=== PATIENT | male | born 1955 | race Caucasian/White ===

== ENCOUNTER → 2021-01-28 09:14 | Outpatient (CLI) | payer OTHER, SELFPAY ==
[2021-01-28 19:13] LABS: Alanine Aminotransferase 25 IU/L (<50); Albumin 4.3 g/dL (3.5-5.0); Albumin Globulin Ratio 1.5 (1.0-2.8); Alkaline Phosphatase 71 U/L (38-126); Aspartate Aminotransferase 25 IU/L (17-59); BUN Creatinine Ratio 18.6 (6-22); Bilirubin Total 1.1 mg/dL (0.2-1.3); Blood Urea Nitrogen 13 mg/dL (9-20); Carbon Dioxide 28 mmol/L (22-32); Chloride 103 mmol/L (98-107); Cholesterol 152 mg/dL (140-199); Estimated Glomerular Filt Rate > 60.0 mL/min (>60); Globulin 2.9 g/dL (1.7-4.1); Glucose 173 mg/dL (80-110); HDL Cholesterol 38 mg/dL (40-60); HEMOLYSIS < 15 (0-50); LDL Cholesterol Calculated 82 mg/dL (<100); Sodium 139 mmol/L (137-145); Total Protein 7.2 g/dL (6.3-8.2); Triglycerides 159 mg/dL (35-150)
[2021-01-28 20:20] LABS: Add Manual Diff / Slide Review NO; Basophils Absolute Auto 200 /uL (0-100); Basophils Percent Auto 1.5 % (0-2); Eosinophils Absolute Auto 500 /uL (0-450); Eosinophils Percent Auto 4.7 % (2-4); Hematocrit 43.9 % (41-53); Hemoglobin 13.5 g/dL (13.5-17.5); Lymphocytes Absolute Auto 3100 /uL (1100-4500); Lymphocytes Percent Auto 30.5 % (25-40); Mean Corpuscular HGB Conc 30.8 % (30-36); Mean Corpuscular Hemoglobin 29.7 PG (26-34); Mean Corpuscular Volume 96.4 fL (80-100); Monocytes Absolute Auto 200 /uL (0-900); Monocytes Percent Auto 2.2 % (3-14); Neutrophils Absolute Auto 6100 /uL (1500-7000); Neutrophils Percent Auto 61.1 % (50-75); Platelet Count 168 X10^3/uL (150-400); Red Blood Cell Count 4.56 X10^6/uL (4.5-5.9); Red Cell Distribution Width 18.1 % (11.6-14.8)
[2021-01-28 22:14] LABS: Hemoglobin A1C% w Est Avg Glu 7.4 % (4.0-6.0)
== END ==
PROVIDERS: PCP Physician Assistant; Visit Provider Physician Assistant
DX: E11.65 Type 2 diabetes mellitus with hyperglycemia (principal); E78.5 Hyperlipidemia, unspecified; M77.8 Other enthesopathies, not elsewhere classified
CPT/HCPCS: 80053; 80061; 83036; 85025

== ENCOUNTER → 2021-11-25 08:56 | Outpatient (CLI) | payer OTHER, SELFPAY ==
[2021-11-25 19:38] LABS: Hemoglobin A1C% w Est Avg Glu 7.4 % (4.0-6.0)
[2021-11-25 19:42] LABS: Alanine Aminotransferase 22 IU/L (<50); Albumin 4.4 g/dL (3.5-5.0); Albumin Globulin Ratio 1.6 (1.0-2.8); Alkaline Phosphatase 55 U/L (38-126); Aspartate Aminotransferase 25 IU/L (17-59); BUN Creatinine Ratio 17.7 (6-22); Bilirubin Total 1.9 mg/dL (0.2-1.3); Blood Urea Nitrogen 14 mg/dL (9-20); Calcium 9.4 mg/dL (8.4-10.2); Carbon Dioxide 29 mmol/L (22-32); Chloride 101 mmol/L (98-107); Cholesterol 134 mg/dL (140-199); Estimated Glomerular Filt Rate > 60.0 mL/min (>60); Globulin 2.7 g/dL (1.7-4.1); Glucose 141 mg/dL (80-110); HDL Cholesterol 27 mg/dL (40-60); HEMOLYSIS < 15 (0-50); LDL Cholesterol Calculated 75 mg/dL (<100); Potassium 4.7 mmol/L (3.4-5.1); Sodium 137 mmol/L (137-145); Total Protein 7.1 g/dL (6.3-8.2); Triglycerides 161 mg/dL (35-150)
[2021-11-25 20:12] LABS: Prostate Specific Antigen Scrn 1.79 ng/mL (0.1-4.0); TSH w/ Reflex to FT4 2.88 uIU/mL (0.47-4.68)
[2021-11-25 21:05] LABS: Hematocrit 34.2 % (41-53); Hemoglobin 13.4 g/dL (13.5-17.5); Mean Corpuscular HGB Conc 39.2 % (30-36); Mean Corpuscular Hemoglobin 47.8 PG (26-34); Platelet Count 321 X10^3/uL (150-400); Red Blood Cell Count 2.81 X10^6/uL (4.5-5.9); Red Cell Distribution Width 34.8 % (11.6-14.8); White Blood Cell Count 9.2 X10^3/uL (4.5-11.0)
[2021-11-25 22:08] LABS: Add Manual Diff / Slide Review YES
[2021-11-25 22:12] LABS: Neutrophils Absolute Manual 5428 /uL (3000-5900); Total Cells Counted 100
[2021-11-25 22:35] LABS: RBC Morphology Normal Morphology
== END ==
PROVIDERS: PCP Physician Assistant; Visit Provider Physician Assistant
DX: E11.65 Type 2 diabetes mellitus with hyperglycemia (principal); Z86.010 Personal history of colon polyps; N40.0 Benign prostatic hyperplasia without lower urinary tract symptoms; E78.5 Hyperlipidemia, unspecified; Z12.5 Encounter for screening for malignant neoplasm of prostate
CPT/HCPCS: 80053; 80061; 83036; 84443; 85007; 85025; G0103

== ENCOUNTER → 2021-11-27 09:21 | Outpatient (CLI) | payer OTHER, SELFPAY ==
[2021-11-27 18:59] LABS: HEMOLYSIS < 15 (0-50); Iron 208 ug/dL (49-181)
[2021-11-27 19:10] LABS: Percent Iron Saturation 53 % (20-50); Total Iron Binding Capacity 389 ug/dL (261-462); Transferrin 324 mg/dL (206-381)
[2021-11-27 19:38] LABS: Ferritin 196 ng/mL (18-464)
[2021-11-27 20:54] LABS: Hematocrit 39.4 % (41-53); Hemoglobin 13.2 g/dL (13.5-17.5); Mean Corpuscular Hemoglobin 30.7 PG (26-34); Mean Corpuscular Volume 91.7 fL (80-100); Red Cell Distribution Width 13.7 % (11.6-14.8); White Blood Cell Count 9.9 X10^3/uL (4.5-11.0)
[2021-11-27 20:55] LABS: Mean Corpuscular HGB Conc 33.5 % (30-36)
[2021-11-27 20:56] LABS: Platelet Count 295 X10^3/uL (150-400)
[2021-11-27 21:02] LABS: Neutrophils Absolute Manual 5940 /uL (3000-5900); Total Cells Counted 100
[2021-11-27 21:06] LABS: Poikilocytosis 1+
== END ==
PROVIDERS: PCP Physician Assistant; Visit Provider Physician Assistant
DX: D64.9 Anemia, unspecified (principal)
CPT/HCPCS: 82728; 83540; 83550; 85025

== ENCOUNTER → 2021-12-01 10:17 | Outpatient (CLI) | payer OTHER, SELFPAY ==
[2021-12-03 10:51] LABS: Fecal Immunochemical Test Negative (Negative)
== END ==
PROVIDERS: PCP Physician Assistant; Visit Provider Physician Assistant
DX: D64.9 Anemia, unspecified (principal)
CPT/HCPCS: 82274

== ENCOUNTER → 2022-01-15 08:46 | Outpatient (CLI) | payer OTHER, SELFPAY ==
[2022-01-15 19:11] LABS: Bilirubin Total 1.4 mg/dL (0.2-1.3)
[2022-01-15 19:51] LABS: Add Manual Diff / Slide Review NO; Basophils Absolute Auto 100 /uL (0-100); Basophils Percent Auto 1.2 % (0-2); Eosinophils Absolute Auto 600 /uL (0-450); Eosinophils Percent Auto 6.2 % (2-4); Hematocrit 38.1 % (41-53); Hemoglobin 13.1 g/dL (13.5-17.5); Lymphocytes Absolute Auto 2400 /uL (1100-4500); Lymphocytes Percent Auto 26.2 % (25-40); Mean Corpuscular HGB Conc 34.4 % (30-36); Mean Corpuscular Hemoglobin 33.1 PG (26-34); Mean Corpuscular Volume 96.2 fL (80-100); Monocytes Absolute Auto 800 /uL (0-900); Monocytes Percent Auto 8.4 % (3-14); Neutrophils Absolute Auto 5400 /uL (1500-7000); Platelet Count 332 X10^3/uL (150-400); Red Blood Cell Count 3.96 X10^6/uL (4.5-5.9); Red Cell Distribution Width 13.7 % (11.6-14.8); White Blood Cell Count 9.3 X10^3/uL (4.5-11.0)
== END ==
PROVIDERS: PCP Physician Assistant; Visit Provider Physician Assistant
DX: D64.9 Anemia, unspecified (principal); R17 Unspecified jaundice
CPT/HCPCS: 82247; 85025

== ENCOUNTER → 2022-03-11 15:08 | Outpatient (CLI) | payer OTHER, SELFPAY ==
--- NOTE | 2022-03-11 15:10 | DI.ECHO.S_ITS ---
[place] [facility]---------+ [facility] +---------+ : : [address] : : : : [id number] : : : : Phone: [phone]+ Echocardiogram Report + + :Name: JASSON FLORES Study Date: 03/11/2022 Height: 70 in : :[facility] ReadingLocation: Weight: 200 lb : : Gender: Male BSA: 2.1 m2 : :: 1955 Age: 66 yrs BP: 152/101 mmHg: :Reason For Study: CHEST PAIN : :Ordering Physician: RUIZ, : :ELBA Performed By: Sruthi Tipton : :Referring: ELBA MELCHOR : + + Interpretation Summary The ejection fraction is estimated to be 55-60%. Diastolic parameters suggest probable normal left ventricular diastolic function and normal filling pressures. The right ventricle is normal in size and function. There is trace aortic regurgitation. Unable to estimate PASP. The ascending aorta is moderately enlarged, 4.2 cm. Procedure: A two-dimensional transthoracic echocardiogram with color flow and Doppler was performed. The study quality was technically adequate. There is no prior echocardiogram noted for this patient. The patient was in sinus rhythm with heart rates between 70-80 bpm during the exam. Left Ventricle: There is normal left ventricular wall thickness. The ejection fraction is estimated to be 55-60%. Diastolic parameters suggest probable normal left ventricular diastolic function and normal filling pressures. Right Ventricle: The right ventricle is normal in size and function. Atria: The left atrial size is normal. Right atrial size is normal. There is no Doppler evidence for an interatrial shunt. Mitral Valve: The mitral valve leaflets appear mildly thickened, but open well. There is mild mitral annular calcification. There is trace mitral regurgitation. Aortic Valve: The aortic valve is trileaflet. The aortic valve opens well. There is no aortic valve stenosis. There is trace aortic regurgitation. Tricuspid Valve: The tricuspid valve is normal in structure and function. There is a trace or physiologic amount of tricuspid regurgitation. Pulmonic Valve: The pulmonic valve leaflets are thin and pliable; valve motion is normal. There is mild pulmonic regurgitation. Great Vessels: The aortic root is normal size. The ascending aorta is moderately enlarged. The IVC is of normal diameter and collapses greater than 50% with a sniff. This suggests a low right atrial pressure of 3 mm Hg. Pericardium/ Pleura There is no pericardial effusion. There is no pleural effusion. MMode/2D Measurements & Calculations LVIDd: 4.9 cm LVOT diam: 2.2 cm LVIDs: 3.0 cm Ao root diam: 3.8 cm FS: 37.7 % asc Aorta Diam: 4.2 cm IVSd: 1.0 cm Ao Arch Diam (Prox Trans): 3.3 cm LVPWd: 1.00 cm LV wade. diameter/BSA (cm/m^2): 2.3 LV sys. diameter/BSA (cm/m^2): 1.4 LA A2 area: 20.0 cm2 RA long axis: 5.3 cm LA A4 area: 16.3 cm2 RA area: 18.6 cm2 LA length (vol): 5.2 cm RA vol: 55.4 ml LA vol: 52.9 ml RA : 26.5 ml/m2 LA vol index: 25.3 ml/m2 IVC diam: 1.1 cm RVD1 (basal): 4.4 cm RVD2 (mid): 3.8 cm TAPSE: 2.6 cm Doppler Measurements & Calculations Ao V2 max: 162.2 cm/sec LVOT Max Melanie: 100.7 cm/sec Ao V2 mean: 98.0 cm/sec LV V1 max P.1 mmHg Ao max P.5 mmHg LV V1 VTI: 21.7 cm Ao mean P.7 mmHg YURIY(I,D): 3.3 cm2 Ao V2 VTI: 26.1 cm YURIY(V,D): 2.4 cm2 sev ratio: 0.83 YURIY indexed to BSA (cm^2/m^2): 1.6 AI P1/2t: 804.7 msec AI dec slope: 121.2 cm/sec2 MV E max melanie: 69.4 cm/sec PA V2 max: 117.4 cm/sec MV A max melanie: 84.6 cm/sec PA V2 mean: 77.7 cm/sec MV E/A: 0.82 PA mean P.7 mmHg Med Peak E' Melanie: 6.6 cm/sec PA pr(Accel): 37.9 mmHg E/E' med: 10.6 Lat Peak E' Melanie: 9.9 cm/sec E/E' lat: 7.0 E/e' average: 8.8 MV dec time: 0.23 sec SVLVOT): 85.1 ml Reading Physician:05:11 PM
[2022-03-11 17:09] LABS: COVID19 -Nasal RAPID Negative (Negative)
--- NOTE | 2022-03-11 19:15 | DI.NM.S_ITS ---
DATE OF SERVICE: 03/11/2022 PROCEDURE: Exercise stress test. INDICATION: Chest pain, sinus bradycardia with underlying diabetes. CARDIAC STRESS: The patient underwent exercise stress test under the supervision of an attending staff. The patient walked on Mario protocol for 6 minutes and 51 seconds, achieved 92 percent of target heart rate. Baseline blood pressure 124/80 mmHg. Maximum blood pressure 172/92 mmHg. VICENTA positive 13 percent. Baseline rhythm was sinus. During stress, no convincing ischemic changes seen. Some intermittent occasional PVCs without any ventricular tachycardia. No chest discomfort. Had some shortness of breath. CONCLUSION: Exercise stress test is negative for inducible ischemia. Diminished exercise tolerance. VICENTA positive 13 percent. Achieved 92 percent of target heart rate. Mildly hypertensive blood pressure response. Diastolic blood pressure increased from 80 to 92 mmHg. Baseline rhythm sinus. No convincing ischemic changes seen. Occasional premature ventricular contractions, including isolated premature ventricular contractions and rare ventricular couplets. No ventricular tachycardia. No chest pain. Had some shortness of breath. Overall low-risk exercise stress test. Roberth Martin - DIANA/levi/bull doc#: [id number]/job#: [id number] dd: 03/11/2022 17:12:00 dt: 03/11/2022 17:55:00 DICTATING MD/COPIES TO: Eldon Raines MD COPIES MNE: SHYLA;
== END ==
PROVIDERS: PCP Physician Assistant; Referring Provider Internal Medicine Cardiovascular Disease; Visit Provider Internal Medicine Cardiovascular Disease
DX: R07.9 Chest pain, unspecified (principal); Z20.822 Contact with and (suspected) exposure to COVID-19; I10 Essential (primary) hypertension; I35.1 Nonrheumatic aortic (valve) insufficiency; I51.7 Cardiomegaly
CPT/HCPCS: 87635; 93017; 93306

== ENCOUNTER → 2022-03-18 10:32 | Outpatient (CLI) | payer OTHER, SELFPAY ==
[2022-03-18 19:25] LABS: Alanine Aminotransferase 23 IU/L (<50); Albumin 4.3 g/dL (3.5-5.0); Albumin Globulin Ratio 1.5 (1.0-2.8); Alkaline Phosphatase 63 U/L (38-126); Aspartate Aminotransferase 41 IU/L (17-59); BUN Creatinine Ratio 30.1 (6-22); Bilirubin Total 0.9 mg/dL (0.2-1.3); Blood Urea Nitrogen 22 mg/dL (9-20); Calcium 8.9 mg/dL (8.4-10.2); Carbon Dioxide 24 mmol/L (22-32); Chloride 105 mmol/L (98-107); Estimated Glomerular Filt Rate > 60 mL/min (>60); Globulin 2.8 g/dL (1.7-4.1); Glucose 272 mg/dL (80-110); HEMOLYSIS < 15 (0-50); Potassium 4.5 mmol/L (3.4-5.1); Sodium 138 mmol/L (137-145); Total Protein 7.1 g/dL (6.3-8.2)
[2022-03-18 19:29] LABS: Hemoglobin A1C% w Est Avg Glu 7.2 % (4.0-6.0)
[2022-03-18 21:00] LABS: Add Manual Diff / Slide Review NO; Basophils Absolute Auto 100 /uL (0-100); Basophils Percent Auto 1.2 % (0-2); Eosinophils Absolute Auto 0 /uL (0-450); Eosinophils Percent Auto 0.4 % (2-4); Hematocrit 37.2 % (41-53); Hemoglobin 13.1 g/dL (13.5-17.5); Lymphocytes Absolute Auto 1600 /uL (1100-4500); Lymphocytes Percent Auto 14.9 % (25-40); Mean Corpuscular HGB Conc 35.2 % (30-36); Mean Corpuscular Hemoglobin 34.7 PG (26-34); Mean Corpuscular Volume 98.4 fL (80-100); Monocytes Absolute Auto 200 /uL (0-900); Monocytes Percent Auto 2.2 % (3-14); Neutrophils Absolute Auto 8600 /uL (1500-7000); Neutrophils Percent Auto 81.3 % (50-75); Platelet Count 345 X10^3/uL (150-400); Red Blood Cell Count 3.78 X10^6/uL (4.5-5.9); Red Cell Distribution Width 13.9 % (11.6-14.8); White Blood Cell Count 10.5 X10^3/uL (4.5-11.0)
== END ==
PROVIDERS: PCP Physician Assistant; Visit Provider Physician Assistant
DX: D64.9 Anemia, unspecified (principal); E11.65 Type 2 diabetes mellitus with hyperglycemia; R17 Unspecified jaundice; Z79.899 Other long term (current) drug therapy
CPT/HCPCS: 80053; 83036; 85025

== ENCOUNTER → 2022-05-12 14:02 | Outpatient (CLI) | payer OTHER, SELFPAY ==
[2022-05-12 19:43] LABS: HEMOLYSIS < 15 (0-50); Iron 127 ug/dL (49-181)
[2022-05-12 19:52] LABS: Alanine Aminotransferase 22 IU/L (<50); Albumin Globulin Ratio 1.4 (1.0-2.8); Alkaline Phosphatase 58 U/L (38-126); Aspartate Aminotransferase 56 IU/L (17-59); Bilirubin Total 0.7 mg/dL (0.2-1.3); Blood Urea Nitrogen 20 mg/dL (9-20); Calcium 8.9 mg/dL (8.4-10.2); Carbon Dioxide 28 mmol/L (22-32); Chloride 105 mmol/L (98-107); Estimated Glomerular Filt Rate > 60 mL/min (>60); Globulin 2.8 g/dL (1.7-4.1); Glucose 144 mg/dL (80-110); HEMOLYSIS < 15 (0-50); Potassium 4.4 mmol/L (3.4-5.1); Sodium 139 mmol/L (137-145); Total Protein 6.8 g/dL (6.3-8.2)
[2022-05-12 20:00] LABS: Percent Iron Saturation 35 % (20-50); Total Iron Binding Capacity 358 ug/dL (261-462); Transferrin 260 mg/dL (206-381)
[2022-05-12 20:22] LABS: Ferritin 128 ng/mL (18-464)
[2022-05-12 20:54] LABS: Folate 15.6 ng/mL (2.76-20.0); Vitamin B12 778 pg/mL (239-931)
[2022-05-12 21:26] LABS: Hematocrit 38.9 % (41-53); Hemoglobin 13.3 g/dL (13.5-17.5); Mean Corpuscular HGB Conc 34.3 % (30-36); Mean Corpuscular Hemoglobin 31.4 PG (26-34); Mean Corpuscular Volume 91.4 fL (80-100); Platelet Count 358 X10^3/uL (150-400); Red Blood Cell Count 4.25 X10^6/uL (4.5-5.9); Red Cell Distribution Width 13.5 % (11.6-14.8); White Blood Cell Count 9.8 X10^3/uL (4.5-11.0)
[2022-05-12 21:59] LABS: Add Manual Diff / Slide Review YES
[2022-05-12 22:03] LABS: Neutrophils Absolute Manual 6272 /uL (3000-5900); Total Cells Counted 100
[2022-05-12 22:04] LABS: RBC Morphology Normal Morphology
[2022-05-12 22:13] LABS: Erythrocyte Sedimentation Rate 1 MM/HR (0-15)
[2022-05-14 14:43] LABS: Alpha-1-Globulin 0.2 g/dL (0.0-0.4); Alpha-2-Globulin 0.6 g/dL (0.4-1.0); Gamma Globulin 0.8 g/dL (0.4-1.8); Globulin Total 2.5 g/dL (2.2-3.9); Protein, Total 6.5 g/dL (6.0-8.5)
== END ==
PROVIDERS: PCP Physician Assistant; Visit Provider Internal Medicine Medical Oncology
DX: C91.10 Chronic lymphocytic leukemia of B-cell type not having achieved remission (principal); D64.9 Anemia, unspecified
CPT/HCPCS: 80053; 82607; 82728; 82746; 83540; 83550; 84155; 84165; 85007; 85025; 85651

== ENCOUNTER → 2023-06-16 09:28 | Outpatient (CLI) | payer OTHER, SELFPAY ==
[2023-06-16 20:40] LABS: Hemoglobin A1C% w Est Avg Glu 6.8 % (4.0-6.0)
[2023-06-16 20:48] LABS: Alanine Aminotransferase 22 IU/L (<50); Albumin 4.3 g/dL (3.5-5.0); Albumin Globulin Ratio 1.4 (1.0-2.8); Alkaline Phosphatase 74 U/L (38-126); Aspartate Aminotransferase 20 IU/L (17-59); BUN Creatinine Ratio 17.8 (6-22); Bilirubin Total 1.2 mg/dL (0.2-1.3); Blood Urea Nitrogen 13 mg/dL (9-20); Calcium 9.9 mg/dL (8.4-10.2); Carbon Dioxide 26 mmol/L (22-32); Chloride 99 mmol/L (98-107); Cholesterol 154 mg/dL (140-199); Estimated Glomerular Filt Rate > 60 mL/min (>60); Globulin 3.1 g/dL (1.7-4.1); Glucose 145 mg/dL (80-110); HDL Cholesterol 33 mg/dL (40-60); HEMOLYSIS < 15 (0-50); LDL Cholesterol Calculated 85 mg/dL (<100); Potassium 4.5 mmol/L (3.4-5.1); Sodium 136 mmol/L (137-145); Total Protein 7.4 g/dL (6.3-8.2); Triglycerides 178 mg/dL (35-150)
[2023-06-16 20:52] LABS: Add Manual Diff / Slide Review NO; Basophils Absolute Auto 200 /uL (0-100); Basophils Percent Auto 1.5 % (0-2); Eosinophils Absolute Auto 500 /uL (0-450); Eosinophils Percent Auto 4.9 % (2-4); Hematocrit 39.2 % (41-53); Hemoglobin 14.2 g/dL (13.5-17.5); Lymphocytes Absolute Auto 2400 /uL (1100-4500); Lymphocytes Percent Auto 21.7 % (25-40); Mean Corpuscular HGB Conc 36.1 % (30-36); Mean Corpuscular Hemoglobin 35.7 PG (26-34); Mean Corpuscular Volume 98.8 fL (80-100); Monocytes Absolute Auto 900 /uL (0-900); Monocytes Percent Auto 8.5 % (3-14); Neutrophils Absolute Auto 7000 /uL (1500-7000); Neutrophils Percent Auto 63.4 % (50-75); Platelet Count 386 X10^3/uL (150-400); Red Blood Cell Count 3.97 X10^6/uL (4.5-5.9); Red Cell Distribution Width 13.9 % (11.6-14.8)
[2023-06-16 21:09] LABS: Thyroid Stimulating Hormone 2.23 uIU/mL (0.47-4.68)
[2023-06-16 21:13] LABS: Creatinine Urine Random 95.6 mg/dL
[2023-06-16 21:21] LABS: Microalbumi Creatinin Ratio Ur 13.5 ug/mg CR (<30); Microalbumin Urine Random 1.3 mg/dL (0-1.6)
== END ==
PROVIDERS: PCP Physician Assistant; Visit Provider Physician Assistant
DX: D64.9 Anemia, unspecified (principal); E11.65 Type 2 diabetes mellitus with hyperglycemia; E78.5 Hyperlipidemia, unspecified; R17 Unspecified jaundice
CPT/HCPCS: 80053; 80061; 82043; 82570; 83036; 84443; 85025

== ENCOUNTER → 2023-12-22 09:50 | Outpatient (CLI) | payer OTHER, SELFPAY ==
[2023-12-22 19:48] LABS: Hemoglobin A1C% w Est Avg Glu 8.6 % (4.0-6.0)
[2023-12-22 19:49] LABS: Alanine Aminotransferase 21 IU/L (<50); Albumin 4.1 g/dL (3.5-5.0); Albumin Globulin Ratio 1.5 (1.0-2.8); Alkaline Phosphatase 63 U/L (38-126); Aspartate Aminotransferase 19 IU/L (17-59); BUN Creatinine Ratio 20.6 (6-22); Bilirubin Total 1.1 mg/dL (0.2-1.3); Blood Urea Nitrogen 14 mg/dL (9-20); Calcium 9.6 mg/dL (8.4-10.2); Carbon Dioxide 24 mmol/L (22-32); Chloride 104 mmol/L (98-107); Cholesterol 174 mg/dL (140-199); Estimated Glomerular Filt Rate > 60 mL/min (>60); Globulin 2.7 g/dL (1.7-4.1); Glucose 176 mg/dL (80-110); HDL Cholesterol 50 mg/dL (40-60); HEMOLYSIS < 15 (0-50); LDL Cholesterol Calculated 96 mg/dL (<100); Potassium 4.5 mmol/L (3.4-5.1); Sodium 135 mmol/L (137-145); Total Protein 6.8 g/dL (6.3-8.2); Triglycerides 140 mg/dL (35-150)
[2023-12-22 20:15] LABS: Prostate Specific Antigen Scrn 2.11 ng/mL (0.1-4.0)
[2023-12-22 20:33] LABS: Hematocrit 40.9 % (41-53); Hemoglobin 13.3 g/dL (13.5-17.5); Mean Corpuscular HGB Conc 32.6 % (30-36); Mean Corpuscular Hemoglobin 28.5 PG (26-34); Mean Corpuscular Volume 87.5 fL (80-100); Platelet Count 423 X10^3/uL (150-400); Red Blood Cell Count 4.68 X10^6/uL (4.5-5.9); Red Cell Distribution Width 14.3 % (11.6-14.8); White Blood Cell Count 12.2 X10^3/uL (4.5-11.0)
[2023-12-22 20:45] LABS: Add Manual Diff / Slide Review YES
[2023-12-22 20:49] LABS: Neutrophils Absolute Manual 5856 /uL (3000-5900); Total Cells Counted 100
[2023-12-22 20:51] LABS: RBC Morphology Normal Morphology; Rouleaux 1+; Smudge Cells 1+
[2023-12-23 18:15] LABS: Hep C Virus Ab w/Reflex Quant NEGATIVE s/c (NEGATIVE)
== END ==
PROVIDERS: PCP Physician Assistant; Visit Provider Physician Assistant
DX: Z11.59 Encounter for screening for other viral diseases (principal); E11.65 Type 2 diabetes mellitus with hyperglycemia; D64.9 Anemia, unspecified; R17 Unspecified jaundice; E78.5 Hyperlipidemia, unspecified; Z79.899 Other long term (current) drug therapy; Z12.5 Encounter for screening for malignant neoplasm of prostate
CPT/HCPCS: 80053; 80061; 83036; 85007; 85025; 86803; G0103

== ENCOUNTER → 2024-02-28 12:43 | Outpatient (CLI) | payer OTHER, SELFPAY ==
[2024-02-28 20:10] LABS: Hematocrit 37.4 % (41-53); Hemoglobin 13.6 g/dL (13.5-17.5); Mean Corpuscular HGB Conc 36.5 % (30-36); Mean Corpuscular Hemoglobin 38.4 PG (26-34); Mean Corpuscular Volume 105.2 fL (80-100); Platelet Count 416 X10^3/uL (150-400); Red Blood Cell Count 3.55 X10^6/uL (4.5-5.9)
[2024-02-28 20:26] LABS: Neutrophils Absolute Manual 6600 /uL (3000-5900); Total Cells Counted 100
[2024-02-28 20:27] LABS: Macrocytosis 1+
== END ==
PROVIDERS: PCP Physician Assistant; Visit Provider Family Medicine
DX: D64.9 Anemia, unspecified (principal); R79.9 Abnormal finding of blood chemistry, unspecified; R06.00 Dyspnea, unspecified
CPT/HCPCS: 85025

== ENCOUNTER → 2024-03-07 12:24 | Outpatient (CLI) | payer OTHER, SELFPAY ==
--- NOTE | 2024-03-07 13:00 | DI.CT.S_ITS ---
PROCEDURE: CT CHEST WO CON INDICATIONS: Abnormal CXR, RECURRENT COUGH TECHNIQUE: Noncontrast 5 mm thick sections acquired from the pulmonary apices to the posterior costophrenic angles. 1 mm lung window, 5 mm thick coronal and sagittal and 7 mm axial MIP reformats were then acquired. For radiation dose reduction, the following was used: automated exposure control, adjustment of mA and/or kV according to patient size. COMPARISON: [facility] ([place]), CR, XR CHEST 2V, 02/28/2024, 12:16. FINDINGS: Image quality: Diagnostic. Lower Neck: No enlarged lymph nodes. Thyroid: No thyroid nodules which require sonographic follow up, per consensus guidelines. Axillae: No enlarged lymph nodes. Chest Wall: Unremarkable. Bones: Age-appropriate bony degenerative changes are seen. Lungs and Pleura: In this patient with this given history, scrutiny is given to right infrahilar region. No significant pulmonary abnormality can be seen at this site. No masses or infiltrates can be seen elsewhere. No pneumothorax or pleural effusions are seen. Heart: Heart size is normal. No pericardial effusion. Prominent coronary artery calcification can be seen. Thoracic Vessels: The aorta and pulmonary arteries demonstrate normal size. Mediastinum and Maria T: No enlarged lymph nodes. Esophagus: No wall thickening. No hiatal hernia. Upper Abdomen: Visualized upper abdomen solid organs and bowel loops appear normal. IMPRESSION: No CT abnormality can be seen to correspond with the right infrahilar abnormality seen on the recent prior CT study. No pulmonary abnormality can be seen elsewhere. Additional findings: Prominent coronary artery calcification Dictated by: Michael Gonsalez M.D. on 03/07/2024 at 14:53 Approved by: Michael Gonsalez M.D. on 03/07/2024 at 14:55
== END ==
PROVIDERS: PCP Physician Assistant; Referring Provider Family Medicine; Visit Provider Family Medicine
DX: I25.10 Atherosclerotic heart disease of native coronary artery without angina pectoris (principal); R05.2 Subacute cough; R06.2 Wheezing; R06.09 Other forms of dyspnea; R93.89 Abnormal findings on diagnostic imaging of other specified body structures
CPT/HCPCS: 71250

== ENCOUNTER → 2024-03-21 12:55 | Outpatient (CLI) | payer OTHER, SELFPAY | PROVIDERS: PCP Physician Assistant; Referring Provider Family Medicine; Visit Provider Family Medicine | DX: R06.00 Dyspnea, unspecified (principal); R05.9 Cough, unspecified; R94.2 Abnormal results of pulmonary function studies | CPT/HCPCS: 94060; 94726; 94729 ==

== ENCOUNTER → 2024-03-29 13:05 | Outpatient (CLI) | payer OTHER, SELFPAY ==
[2024-03-29 21:01] LABS: Reticulocyte Count, Percent 1.1 % (0.9-2.6)
[2024-03-29 21:47] LABS: Add Manual Diff / Slide Review NO; Basophils Absolute Auto 100 /uL (0-100); Basophils Percent Auto 0.8 % (0-2); Eosinophils Absolute Auto 400 /uL (0-450); Eosinophils Percent Auto 3.3 % (2-4); Hematocrit 32.8 % (41-53); Hemoglobin 11.9 g/dL (13.5-17.5); Lymphocytes Absolute Auto 2000 /uL (1100-4500); Lymphocytes Percent Auto 18.6 % (25-40); Mean Corpuscular HGB Conc 36.4 % (30-36); Mean Corpuscular Hemoglobin 38.4 PG (26-34); Mean Corpuscular Volume 105.5 fL (80-100); Monocytes Absolute Auto 1200 /uL (0-900); Monocytes Percent Auto 10.8 % (3-14); Neutrophils Absolute Auto 7300 /uL (1500-7000); Neutrophils Percent Auto 66.5 % (50-75); Platelet Count 460 X10^3/uL (150-400); Red Blood Cell Count 3.11 X10^6/uL (4.5-5.9); Red Cell Distribution Width 13.9 % (11.6-14.8)
[2024-03-29 22:29] LABS: HEMOLYSIS < 15 (0-50); Iron 52 ug/dL (49-181)
[2024-03-29 22:35] LABS: BUN Creatinine Ratio 18.6 (6-22); Blood Urea Nitrogen 16 mg/dL (9-20); Carbon Dioxide 26 mmol/L (22-32); Chloride 107 mmol/L (98-107); Estimated Glomerular Filt Rate > 60 mL/min (>60); Glucose 193 mg/dL (80-110); HEMOLYSIS < 15 (0-50); Potassium 4.6 mmol/L (3.4-5.1); Sodium 140 mmol/L (137-145)
[2024-03-29 22:40] LABS: Percent Iron Saturation 16 % (20-50); Total Iron Binding Capacity 331 ug/dL (261-462); Transferrin 267 mg/dL (206-381)
[2024-03-29 22:53] LABS: Hemoglobin A1C% w Est Avg Glu 7.2 % (4.0-6.0)
[2024-03-29 23:05] LABS: TSH w/ Reflex to FT4 1.68 uIU/mL (0.47-4.68)
[2024-03-29 23:08] LABS: Ferritin 211 ng/mL (18-464)
[2024-03-29 23:40] LABS: Folate 4.6 ng/mL (2.76-20.0); Vitamin B12 Reflex MMA if <400 577 pg/mL (239-931)
[2024-03-31 15:09] LABS: Free Kappa Lt Chains, Serum 17.9 mg/L (3.3-19.4); Free Lambda Lt Chains,Serum 16.2 mg/L (5.7-26.3)
[2024-04-03 14:08] LABS: Albumin 3.5 g/dL (2.9-4.4); Alpha-1-Globulin 0.3 g/dL (0.0-0.4); Alpha-2-Globulin 0.8 g/dL (0.4-1.0); Gamma Globulin 0.7 g/dL (0.4-1.8); Globulin Total 2.7 g/dL (2.2-3.9); Protein, Total 6.2 g/dL (6.0-8.5)
== END ==
PROVIDERS: PCP Physician Assistant; Visit Provider Family Medicine
DX: Z01.812 Encounter for preprocedural laboratory examination (principal); D53.9 Nutritional anemia, unspecified; E11.65 Type 2 diabetes mellitus with hyperglycemia; R79.9 Abnormal finding of blood chemistry, unspecified
CPT/HCPCS: 80048; 82607; 82728; 82746; 83036; 83540; 83550; 83883; 84155; 84165; 84443; 85025; 85045

== ENCOUNTER → 2024-04-11 10:43 | Outpatient (CLI) | payer OTHER, SELFPAY ==
[2024-04-11 20:29] LABS: Lactate Dehydrogenase 226 U/L (120-246)
[2024-04-11 20:38] LABS: Hematocrit 35.8 % (41-53); Hemoglobin 12.5 g/dL (13.5-17.5); Mean Corpuscular Hemoglobin 34.7 PG (26-34); Mean Corpuscular Volume 99.2 fL (80-100); Platelet Count 474 X10^3/uL (150-400); Red Blood Cell Count 3.61 X10^6/uL (4.5-5.9); White Blood Cell Count 11.4 X10^3/uL (4.5-11.0)
[2024-04-11 20:50] LABS: Neutrophils Absolute Manual 7296 /uL (3000-5900); RBC Morphology Normal Morphology; Total Cells Counted 100
[2024-04-13 03:13] LABS: Haptoglobin 197 mg/dL (32-363)
== END ==
PROVIDERS: PCP Physician Assistant; Visit Provider Family Medicine
DX: D53.9 Nutritional anemia, unspecified (principal)
CPT/HCPCS: 83010; 83615; 85025

== ENCOUNTER → 2024-07-04 12:35 | Outpatient (CLI) | payer OTHER, SELFPAY ==
--- NOTE | 2024-07-04 | DI.US.S_ITS ---
PROCEDURE: US ABD AORTA ANEURYSM SCREEN INDICATIONS: SCREENING TECHNIQUE: Real time scanning was performed of the aorta and iliac arteries, with image documentation. COMPARISON: [facility], MR, MR PELVIS WO/W CON, 07/04/2024, 13:21. FINDINGS: Aorta: Proximal aortic diameter measures 2.5 cm. Mid-aorta measures 2.0 cm. Distal aortic diameter is 1.8 cm. Iliac arteries: Right common iliac artery measures 1.2 cm. Left common iliac artery measures 1.3 cm. Trace amount of atherosclerotic plaques are noted in bilateral iliac arteries. Incidentally noted is 10.8 x 7.1 x 5.7 cm heterogeneously hypoechoic and solid appearing mass involving left lower quadrant adjacent to the left iliac vessels. Internal vascularity is seen. There is also possible fluid collection with posterior through enhancement measures 3.8 x 2.4 x 1.9 cm in size in left lower quadrant adjacent to the iliac arteries. IMPRESSION: 1. No evidence of abdominal aortic aneurysm. 2. Patient's known large solid mass in left lateral pelvic region is better evaluated on previous MRI study. There is also suggestion of possible fluid collection adjacent to the left iliac vessel with through acoustic enhancement and no internal vascularity not definitely seen on previous MR study and is of indeterminate nature. Dictated by: Balaji Peng M.D. on 07/04/2024 at 17:27 Approved by: Balaji Peng M.D. on 07/04/2024 at 17:30
--- NOTE | 2024-07-04 12:36 | DI.MRI.S_ITS ---
PROCEDURE: MR LUMBAR SPINE WO CON INDICATIONS: lumbar px and radic not improving with PT/conservative tx TECHNIQUE: Noncontrast sagittal T1 spin echo and T2 fast echo, sagittal STIR, and T2 fast spin echo through the lumbar spine. In cases with scoliosis, additional coronal T2 fast spin echo may be performed. COMPARISON: [facility], MR, MR PELVIS WO/W CON, 07/04/2024, 13:21. FINDINGS: Image quality: Excellent. Alignment and Curvature: Trace anterolisthesis of L4 on L5. Bone Marrow: There is an infiltrative marrow process involving the medial left iliac bone and left iliac wing and to a lesser extent the lateral aspect of the left elvis sacrum. This is better seen on the MRI of the pelvis. The iliac bone is surrounded by an filtrate of neoplastic process involving the left iliopsoas muscle and left gluteal muscles and left posterior paraspinous muscles, with an overall contour it measurement of 14.1 x 11.9 cm on image 19 of series 6 of the pelvic MRI study. It is well seen on the T2 axial image 31 series 5 the lumbar spine study. No acute vertebral body compression fractures. Spinal Cord: Conus medullaris terminates at the L1 level. Visualized cord demonstrates normal signal and size. Paraspinous Soft Tissues: The iliac bone is surrounded by an filtrate of neoplastic process involving the left iliopsoas muscle and left gluteal muscles and left posterior paraspinous muscles, with an overall contour it measurement of 14.1 x 11.9 cm on image 19 of series 6 of the pelvic MRI study. It is well seen on the T2 axial image 31 series 5 the lumbar spine study. T12-L1: Facet hypertrophy. No canal stenosis or foraminal stenosis. L1-L2: Disc bulge. Facet hypertrophy. No canal stenosis or foraminal stenosis. L2-L3: Chronic disc height loss. Diffuse disc bulge. Facet and ligament hypertrophy. No canal stenosis or foraminal stenosis. L3-L4: Disc bulge. Facet hypertrophy. No canal stenosis or foraminal stenosis. L4-L5: Anterolisthesis of L4 on L5. Facet hypertrophy. No canal stenosis. There may be tumor infiltration involving the lateral aspect of the left foramen. Reference sagittal image 13 of series 4. L5-S1: Severe disc height loss. Facet hypertrophy. No canal stenosis or foraminal stenosis. IMPRESSION: 1. 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 The soft tissue mass measures approximately 14.1 x 11.9 cm. 2. There may be infiltrative tumor narrowing the lateral aspect of the left L4-L5 foramen, potentially representing in compression on the left L4 nerve root. Comment: Recommend CT abdomen and pelvis with contrast. This mass would be easily amenable to CT-guided biopsy for tissue diagnosis. Comment: An Urgent Findings note was created in PACS to ensure notification of the referring clinician. Dictated by: Ayden Christian M.D. on 07/04/2024 at 13:55 Approved by: Ayden Christian M.D. on 07/04/2024 at 14:12
--- NOTE | 2024-07-04 12:36 | DI.MRI.S_ITS ---
PROCEDURE: MR PELIS WO/W CON INDICATIONS: mass of left buttock, inguinal LA left TECHNIQUE: Noncontrast coronal T1 spin echo and STIR, sagittal T1 spin echo with fat saturation and STIR, axial T1 spin echo and T2 fast spin echo with fat saturation. After the administration of contrast, axial/sagittal/coronal T1 spin echo with fat saturation through the pelvis. COMPARISON: [facility]), CR, XR LUMBAR SPINE 2-3V, 04/18/2024, 8:34. [facility]), CR, XR HIP W PEL IF DONE LT 2V, 05/29/2024, 8:42. [facility], CT, CT CHEST WO CON, 03/07/2024, 12:40. FINDINGS: Image quality: Excellent. Bones: There is extensive marrow edema involving left iliac bone extending to involve left acetabulum as well as posterior and lateral aspect of left sacrum adjacent to the sacroiliac joint. Questionable involvement of spinous processes of left L3 through L5 vertebral body is also noted. There is no gross pathologic fracture. Cortical erosion involving anterior cortex of left iliac bone and left lateral sacrum adjacent to sacroiliac joint is likely present. No marrow signal abnormality is seen in right hemipelvis. Susceptibility artifacts are noted in left proximal femur from prior internal fixation. No definite marrow signal abnormality in visualized portion of left femoral shaft is noted. After IV contrast infusion, there is contrast enhancement within the above-mentioned area of marrow edema. Soft tissues: There is extensive signal abnormality involving left paraspinous muscles at the level of L3 vertebral body extending to lower sacrum. Extensive signal abnormality involving left gluteus medius and minimus muscles as well as deep portion of left gluteus sunita muscle is seen. Similar signal is also noted involving left iliacus and psoas muscles. Similar signal abnormality is also seen involving left obturator externus muscle and left abductor franc muscle. There is asymmetrically enlarged left elvis pelvic muscles compared to the right side. Significant mass effect on the adjacent right iliac and femoral vessels are noted. Prominent lymph nodes are noted along left iliac chain and seen in left inguinal region. No pelvic free fluid. Bladder wall thickness is normal. Enlarged prostate gland is noted with mass effect on floor of urinary bladder. After IV contrast infusion, heterogeneous enhancement throughout above-mentioned area of muscle signal abnormality is seen. IMPRESSION: 1. Finding is suggestive of extensive infiltrative process involving left elvis pelvic muscles as well as left iliac bone, lateral portion of left sacrum as well as left transverse process of L3 through L5 vertebral bodies. No definite pathologic fracture is seen. No other area of abnormal contrast enhancement. 2. Extensive infiltrative process also seen involving left elvis pelvic muscles as described in detail above with asymmetrically enlarged affected left elvis pelvic muscles and significant mass effect on the adjacent left pelvic vasculatures. Finding is highly concerning for infiltrative malignant process such as multiple myeloma. Other primary or metastatic disease cannot be excluded. Consider biopsy of the affected muscles for more definitive diagnosis. Dictated by: Balaji Peng M.D. on 07/04/2024 at 13:58 Approved by: Balaji Peng M.D. on 07/04/2024 at 14:52
== END ==
LOC: MRI 12:35
PROVIDERS: PCP Family Medicine; Referring Provider Family Medicine; Visit Provider Family Medicine
DX: M47.817 Spondylosis without myelopathy or radiculopathy, lumbosacral region (principal); M62.9 Disorder of muscle, unspecified; M89.9 Disorder of bone, unspecified; M47.816 Spondylosis without myelopathy or radiculopathy, lumbar region; M43.16 Spondylolisthesis, lumbar region; Z13.6 Encounter for screening for cardiovascular disorders; R22.2 Localized swelling, mass and lump, trunk; R19.09 Other intra-abdominal and pelvic swelling, mass and lump; M54.50 Low back pain, unspecified; M79.605 Pain in left leg
CPT/HCPCS: 72148; 72197; 76706; A9579

== ENCOUNTER → 2024-07-26 09:33 | Outpatient (CLI) | payer OTHER, SELFPAY ==
[2024-07-26 20:49] LABS: Alanine Aminotransferase 15 IU/L (<50); Albumin 3.1 g/dL (3.5-5.0); Albumin Globulin Ratio 1.3 (1.0-2.8); Alkaline Phosphatase 67 U/L (38-126); Aspartate Aminotransferase 25 IU/L (17-59); BUN Creatinine Ratio 21.2 (6-22); Blood Urea Nitrogen 33 mg/dL (9-20); Carbon Dioxide 33 mmol/L (22-32); Chloride 92 mmol/L (98-107); Estimated Glomerular Filt Rate 49 mL/min (>60); Globulin 2.4 g/dL (1.7-4.1); Glucose 82 mg/dL (80-110); HEMOLYSIS < 15 (0-50); Potassium 4.3 mmol/L (3.4-5.1); Sodium 132 mmol/L (137-145); Total Protein 5.5 g/dL (6.3-8.2)
[2024-07-26 20:50] LABS: Hematocrit 32.1 % (41-53); Hemoglobin 10.9 g/dL (13.5-17.5); Mean Corpuscular HGB Conc 34.1 % (30-36); Mean Corpuscular Hemoglobin 32.4 PG (26-34); Mean Corpuscular Volume 95.1 fL (80-100); Platelet Count 673 X10^3/uL (150-400); Red Blood Cell Count 3.38 X10^6/uL (4.5-5.9); Red Cell Distribution Width 16.4 % (11.6-14.8); White Blood Cell Count 18.4 X10^3/uL (4.5-11.0)
[2024-07-26 20:51] LABS: Add Manual Diff / Slide Review YES
[2024-07-26 21:03] LABS: Neutrophils Absolute Manual 13248 /uL (3000-5900); Total Cells Counted 100
[2024-07-26 21:05] LABS: Anisocytosis 1+; Ovalocytes 1+; Smudge Cells 2+; Toxic Vacuolation Present
[2024-07-26 21:06] LABS: Rouleaux 1+; Toxic Granulation Present
[2024-07-26 21:21] LABS: Calcium 15.9 mg/dL (8.4-10.2)
== END ==
PROVIDERS: PCP Family Medicine; Visit Provider Family Medicine
DX: E83.52 Hypercalcemia (principal); D64.9 Anemia, unspecified; C79.9 Secondary malignant neoplasm of unspecified site; R63.0 Anorexia; D75.839 Thrombocytosis, unspecified; D72.821 Monocytosis (symptomatic); E11.9 Type 2 diabetes mellitus without complications
CPT/HCPCS: 80053; 85007; 85025

== ENCOUNTER 2024-07-27 14:10 | Emergency (ER) | payer OTHER, SELFPAY ==
[2024-07-27] VITALS (20 sets, daily range): BP systolic 88–133; BP diastolic 59–80; PULSE 74–101; RESP 0–22; TEMP 36.4; O2SAT 88–98; BMI 25.4
--- NOTE | 2024-07-27 14:51 | EKG_ITS ---
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
[2024-07-27 15:03] LABS: Prothrombin Time 11.8 SECONDS (9.4-12.5)
[2024-07-27 15:06] LABS: PTT Partial Thromboplastin Tim 31 SECONDS (25.1-36.5)
[2024-07-27 15:08] LABS: Alanine Aminotransferase 16 IU/L (<50); Albumin 3.6 g/dL (3.5-5.0); Albumin Globulin Ratio 1.4 (1.0-2.8); Alkaline Phosphatase 65 U/L (38-126); Aspartate Aminotransferase 32 IU/L (17-59); BUN Creatinine Ratio 20.5 (6-22); Bilirubin Total 1.2 mg/dL (0.2-1.3); Blood Urea Nitrogen 35 mg/dL (9-20); Carbon Dioxide 36 mmol/L (22-32); Chloride 93 mmol/L (98-107); Creatine Kinase 24 U/L (55-170); Estimated Glomerular Filt Rate 44 mL/min (>60); Globulin 2.6 g/dL (1.7-4.1); Glucose 72 mg/dL (80-110); HEMOLYSIS < 15 (0-50); Lipase 79 U/L (23-300); Magnesium 1.8 mg/dL (1.6-2.3); Potassium 3.6 mmol/L (3.4-5.1); Sodium 134 mmol/L (137-145); Total Protein 6.2 g/dL (6.3-8.2)
[2024-07-27 15:15] LABS: Add Manual Diff / Slide Review NO; Basophils Absolute Auto 100 /uL (0-100); Basophils Percent Auto 0.5 % (0-2); Eosinophils Absolute Auto 1000 /uL (0-450); Hematocrit 35.7 % (41-53); Hemoglobin 11.3 g/dL (13.5-17.5); Lymphocytes Absolute Auto 4100 /uL (1100-4500); Lymphocytes Percent Auto 21.3 % (25-40); Mean Corpuscular HGB Conc 31.7 % (30-36); Mean Corpuscular Hemoglobin 27.4 PG (26-34); Mean Corpuscular Volume 86.3 fL (80-100); Monocytes Absolute Auto 2600 /uL (0-900); Monocytes Percent Auto 13.8 % (3-14); Neutrophils Absolute Auto 11300 /uL (1500-7000); Neutrophils Percent Auto 59.4 % (50-75); Platelet Count 733 X10^3/uL (150-400); Red Blood Cell Count 4.13 X10^6/uL (4.5-5.9); Red Cell Distribution Width 16.1 % (11.6-14.8)
[2024-07-27] MEDS: SODIUM CHLORIDE 0.9% 1,000 ML 1000 ML IV (15:17)
[2024-07-27 15:20] LABS: Troponin I < 0.012 ng/mL (0.01-0.034)
[2024-07-27 15:38] LABS: NT-proBNP (BNP-Adult 18+) 734 pg/mL (<125)
--- NOTE | 2024-07-27 15:45 | ED.RECABL ---
HPI - Recheck/Abnormal Lab/Rx <Jenna Johnathan, DO - Last Filed: 07/30/24 07:15> General Chief Complaint: Recheck/Abnormal Lab/Rx Stated Complaint: Sent by MD; Hypercalcemia Time Seen by Provider: 07/27/24 15:19 History of Present Illness HPI narrative: Patient is a 68-year-old male history of diabetes polymyalgia rheumatica large left buttock mass and inguinal mass presenting today with hypercalcemia. He was treated by Oncology this week for hypercalcemia as an outpatient. Records from PCP have been reviewed it is presumed he was given a bisphosphonate. He had outpatient blood work done yesterday which showed a calcium of 15.9 and he was sent to the ED today. Apparently biopsy results are pending due to additional testing and 2nd opinion from pathologist at [facility]. Patient reports significant weight loss about 20-30 lb over last couple of months Related Data Home Medications Medication Instructions Recorded Confirmed cholecalciferol (vitamin D3) 50 50 mcg PO DAILY 04/28/22 07/26/24 mcg (2,000 unit) capsule (Vitamin D3) mupirocin 2 % topical ointment 1 applic topical BID PRN 06/14/24 07/26/24 metformin 500 mg tablet 500 mg PO DAILY 07/26/24 07/26/24 Previous Rx's Medication Instructions Recorded budesonide 90 mcg/actuation breath 1 inh inhalation BID #1 ea 08/16/23 activated powder inhaler (Pulmicort Flexhaler) lisinopril 10 mg tablet See Rx Instructions .Route 12/14/23 .COMPLEX #90 tabs albuterol sulfate 90 mcg/actuation 2 puff PO Q4-6H #8.5 grams 02/28/24 aerosol inhaler atorvastatin 20 mg tablet 20 mg PO BEDTIME for cholesterol. 03/10/24 prevents heart attack and stroke #90 tabs prednisone 20 mg tablet 40 mg (2 x 20 mg) PO DAILY #15 tabs 06/14/24 gabapentin 300 mg capsule 600 mg (2 x 300 mg) PO TID #180 06/19/24 caps docusate sodium 250 mg capsule 250 mg PO BID #60 caps 07/05/24 oxycodone 5 mg tablet 5 mg PO TID PRN pain #60 tabs 07/21/24 Allergies Allergy/AdvReac Type Severity Reaction Status Date / Time No Known Drug Allergies Allergy Verified 07/26/24 08:59 Patient History <Jenna Mann DO - Last Filed: 07/30/24 07:15> Medical History (Updated 07/27/24 @ 19:45 by Jenna Mann DO) BPH (benign prostatic hyperplasia) Hx of adenomatous colonic polyps Hyperlipidemia Polymyalgia rheumatica Social History Smoking Status: Never smoker Smoking Status: Never smoker Substance Use Type: does not use Exam <DO Shea Rodriguez Last Filed: 07/30/24 07:15> Initial Vital Signs Initial Vital Signs: Vital Signs Temperature 97.6 F 07/27/24 14:23 Pulse Rate 74 07/27/24 14:23 Respiratory Rate 19 07/27/24 14:23 Blood Pressure 88/59 L 07/27/24 14:23 Pulse Oximetry 95 07/27/24 14:23 Oxygen Delivery Method Room Air 07/27/24 14:23 GENERAL: Alert 68-year-old male and in [no acute] distress. HEENT: Head atraumatic,EOMI, pupils reactive, face symmetric, [moist] mucous membranes CARDIOVASCULAR: Regular rate and rhythm without murmurs, rubs or gallops. RESPIRATORY: Breath sounds equal bilaterally, no wheezes rales or rhonchi. ABDOMEN: Soft, nontender. Normoactive bowel sounds all 4 quadrants. No guarding or rebound. EXTREMITIES: Normal range of motion, no clubbing or edema. Neurovascularly intact NEUROLOGICAL: Alert and oriented x4.Normal gait and speech. Cranial nerves II through XII grossly intact. SKIN: Warm, dry, no laceration, no petechiae, no rashes or lesions. <Darius Escamilla DO - Last Filed: 07/28/24 00:34> Initial Vital Signs Initial Vital Signs: Vital Signs Temperature 97.6 F 07/27/24 14:23 Pulse Rate 74 07/27/24 14:23 Respiratory Rate 19 07/27/24 14:23 Blood Pressure 88/59 L 07/27/24 14:23 Pulse Oximetry 95 07/27/24 14:23 Oxygen Delivery Method Room Air 07/27/24 14:23 Course <Jenna Mann DO - Last Filed: 07/30/24 07:15> Orders Ordered: Discontinued Medications Calcitonin [place] (Calcitonin,[place] 400 Units/2 Ml Mdv) 300 units SUBCUT NOW ONE Stop: 07/27/24 16:21 Last Admin: 07/27/24 16:32 Dose: 300 units Documented By: GILLES Furosemide (Furosemide 40 Mg/4 Ml Vial) 20 mg IV NOW ONE Stop: 07/27/24 15:20 Last Admin: 07/27/24 16:31 Dose: 20 mg Documented By: GILLES Sodium Chloride (Normal Saline 0.9%) 1,000 mls @ 1,000 mls/hr IV BOLUS ONE Stop: 07/27/24 16:13 Last Infusion: 07/28/24 02:04 Dose: Infused Documented By: Infusion: 07/27/24 16:22 Dose: Infused Documented By: Admin: 07/27/24 15:17 Dose: 1,000 mls/hr Documented By: DENISE Pamidronate Disodium 60 mg/ (Sodium Chloride) 1,020 mls @ 500 mls/hr IV NOW ONE Stop: 07/27/24 18:18 Last Admin: 07/27/24 16:49 Dose: Not Given Documented By: GILLES Sodium Chloride (Normal Saline 0.9%) 1,000 mls @ 100 mls/hr IV CONT KATRINA Last Admin: 07/27/24 17:04 Dose: 100 mls/hr Documented By: GILLES Zoledronic Acid 3 mg/ Sodium (Chloride) 103.75 mls @ 311.25 mls/hr IV NOW ONE Stop: 07/27/24 17:32 Last Admin: 07/27/24 19:13 Dose: Not Given Documented By: GILLES Ondansetron HCl (Ondansetron 4 Mg/2 Ml Inj) 4 mg IV NOW ONE Stop: 07/27/24 16:56 Last Admin: 07/27/24 17:03 Dose: 4 mg Documented By: GILLES Ondansetron HCl (Ondansetron 4 Mg/2 Ml Inj) 4 mg IV NOW ONE Stop: 07/28/24 02:02 Last Admin: 07/28/24 02:04 Dose: 4 mg Documented By: Vital Signs Vital signs: Vital Signs - 8 hr 07/27/24 17:10 07/27/24 17:10 07/27/24 17:32 Pulse Rate 92 H 92 H Respiratory Rate 17 Blood Pressure 132/75 Pulse Oximetry 95 88 L Oxygen Delivery Method Nasal Cannula Nasal Cannula Oxygen Flow Rate 2 2 07/27/24 18:00 07/27/24 18:00 07/27/24 18:15 Pulse Rate 94 H Respiratory Rate 14 Blood Pressure 114/73 133/80 Pulse Oximetry 98 Oxygen Delivery Method Oxygen Flow Rate 07/27/24 18:15 07/27/24 18:30 07/27/24 18:30 Pulse Rate 95 H 92 H Respiratory Rate 16 Blood Pressure 113/71 Pulse Oximetry 94 98 Oxygen Delivery Method Nasal Cannula Oxygen Flow Rate 2 07/27/24 19:00 07/27/24 19:00 07/27/24 19:30 Pulse Rate 96 H 101 H Respiratory Rate 19 17 Blood Pressure 110/73 Pulse Oximetry 98 98 98 Oxygen Delivery Method Nasal Cannula Oxygen Flow Rate 2 07/27/24 19:30 07/27/24 20:00 07/27/24 20:00 Pulse Rate 96 H Respiratory Rate 12 Blood Pressure 111/75 125/76 Pulse Oximetry 97 Oxygen Delivery Method Oxygen Flow Rate 07/27/24 20:30 07/27/24 20:30 07/27/24 21:00 Pulse Rate 95 H Respiratory Rate 13 Blood Pressure 123/74 114/72 Pulse Oximetry 95 Oxygen Delivery Method Nasal Cannula Oxygen Flow Rate 1 07/27/24 21:00 07/27/24 21:30 07/27/24 21:30 Pulse Rate 99 H 101 H Respiratory Rate 13 10 L Blood Pressure 123/71 Pulse Oximetry 96 97 Oxygen Delivery Method Oxygen Flow Rate 07/27/24 22:00 07/27/24 22:00 07/27/24 22:30 Pulse Rate 95 H 93 H Respiratory Rate 0 L 11 L Blood Pressure 119/71 Pulse Oximetry 97 96 Oxygen Delivery Method Oxygen Flow Rate 07/27/24 22:30 07/27/24 23:00 07/27/24 23:00 Pulse Rate 97 H Respiratory Rate 13 Blood Pressure 124/68 109/69 Pulse Oximetry 96 Oxygen Delivery Method Oxygen Flow Rate 07/27/24 23:30 07/27/24 23:30 07/28/24 00:00 Pulse Rate 97 H 92 H Respiratory Rate 13 Blood Pressure 98/66 Pulse Oximetry 96 97 Oxygen Delivery Method Oxygen Flow Rate 07/28/24 00:00 Pulse Rate Respiratory Rate Blood Pressure 108/65 Pulse Oximetry Oxygen Delivery Method Oxygen Flow Rate <Darius Escamilla DO - Last Filed: 07/28/24 00:34> Orders Ordered: Discontinued Medications Calcitonin [place] (Calcitonin,[place] 400 Units/2 Ml Mdv) 300 units SUBCUT NOW ONE Stop: 07/27/24 16:21 Last Admin: 07/27/24 16:32 Dose: 300 units Documented By: GILLES Furosemide (Furosemide 40 Mg/4 Ml Vial) 20 mg IV NOW ONE Stop: 07/27/24 15:20 Last Admin: 07/27/24 16:31 Dose: 20 mg Documented By: GILLES Sodium Chloride (Normal Saline 0.9%) 1,000 mls @ 1,000 mls/hr IV BOLUS ONE Stop: 07/27/24 16:13 Last Infusion: 07/28/24 02:04 Dose: Infused Documented By: Infusion: 07/27/24 16:22 Dose: Infused Documented By: Admin: 07/27/24 15:17 Dose: 1,000 mls/hr Documented By: DENISE Pamidronate Disodium 60 mg/ (Sodium Chloride) 1,020 mls @ 500 mls/hr IV NOW ONE Stop: 07/27/24 18:18 Last Admin: 07/27/24 16:49 Dose: Not Given Documented By: GILLES Sodium Chloride (Normal Saline 0.9%) 1,000 mls @ 100 mls/hr IV CONT KATRINA Last Admin: 07/27/24 17:04 Dose: 100 mls/hr Documented By: GILLES Zoledronic Acid 3 mg/ Sodium (Chloride) 103.75 mls @ 311.25 mls/hr IV NOW ONE Stop: 07/27/24 17:32 Last Admin: 07/27/24 19:13 Dose: Not Given Documented By: GILLES Ondansetron HCl (Ondansetron 4 Mg/2 Ml Inj) 4 mg IV NOW ONE Stop: 07/27/24 16:56 Last Admin: 07/27/24 17:03 Dose: 4 mg Documented By: GILLES Ondansetron HCl (Ondansetron 4 Mg/2 Ml Inj) 4 mg IV NOW ONE Stop: 07/28/24 02:02 Last Admin: 07/28/24 02:04 Dose: 4 mg Documented By: Vital Signs Vital signs: Vital Signs - 8 hr 07/27/24 17:10 07/27/24 17:10 07/27/24 17:32 Pulse Rate 92 H 92 H Respiratory Rate 17 Blood Pressure 132/75 Pulse Oximetry 95 88 L Oxygen Delivery Method Nasal Cannula Nasal Cannula Oxygen Flow Rate 2 2 07/27/24 18:00 07/27/24 18:00 07/27/24 18:15 Pulse Rate 94 H Respiratory Rate 14 Blood Pressure 114/73 133/80 Pulse Oximetry 98 Oxygen Delivery Method Oxygen Flow Rate 07/27/24 18:15 07/27/24 18:30 07/27/24 18:30 Pulse Rate 95 H 92 H Respiratory Rate 16 Blood Pressure 113/71 Pulse Oximetry 94 98 Oxygen Delivery Method Nasal Cannula Oxygen Flow Rate 2 07/27/24 19:00 07/27/24 19:00 07/27/24 19:30 Pulse Rate 96 H 101 H Respiratory Rate 19 17 Blood Pressure 110/73 Pulse Oximetry 98 98 98 Oxygen Delivery Method Nasal Cannula Oxygen Flow Rate 2 07/27/24 19:30 07/27/24 20:00 07/27/24 20:00 Pulse Rate 96 H Respiratory Rate 12 Blood Pressure 111/75 125/76 Pulse Oximetry 97 Oxygen Delivery Method Oxygen Flow Rate 07/27/24 20:30 07/27/24 20:30 07/27/24 21:00 Pulse Rate 95 H Respiratory Rate 13 Blood Pressure 123/74 114/72 Pulse Oximetry 95 Oxygen Delivery Method Nasal Cannula Oxygen Flow Rate 1 07/27/24 21:00 07/27/24 21:30 07/27/24 21:30 Pulse Rate 99 H 101 H Respiratory Rate 13 10 L Blood Pressure 123/71 Pulse Oximetry 96 97 Oxygen Delivery Method Oxygen Flow Rate 07/27/24 22:00 07/27/24 22:00 07/27/24 22:30 Pulse Rate 95 H 93 H Respiratory Rate 0 L 11 L Blood Pressure 119/71 Pulse Oximetry 97 96 Oxygen Delivery Method Oxygen Flow Rate 07/27/24 22:30 07/27/24 23:00 07/27/24 23:00 Pulse Rate 97 H Respiratory Rate 13 Blood Pressure 124/68 109/69 Pulse Oximetry 96 Oxygen Delivery Method Oxygen Flow Rate 07/27/24 23:30 07/27/24 23:30 07/28/24 00:00 Pulse Rate 97 H 92 H Respiratory Rate 13 Blood Pressure 98/66 Pulse Oximetry 96 97 Oxygen Delivery Method Oxygen Flow Rate 07/28/24 00:00 Pulse Rate Respiratory Rate Blood Pressure 108/65 Pulse Oximetry Oxygen Delivery Method Oxygen Flow Rate MDM - Recheck/Abnormal Lab/Rx <Jenna Botnick, DO - Last Filed: 07/30/24 07:15> Lab Data 07/27/24 14:40 07/27/24 14:40 Labs: Lab Results 07/27/24 07/27/24 Range/Units 14:40 19:30 WBC 19.0 H (4.5-11.0) X10^3/uL RBC 4.13 L (4.5-5.9) X10^6/uL Hgb 11.3 L (13.5-17.5) g/dL Hct 35.7 L (41-53) % MCV 86.3 D (80-100) fL MCH 27.4 (26-34) PG MCHC 31.7 (30-36) % RDW 16.1 H (11.6-14.8) % Plt Count 733 H (150-400) X10^3/uL Neut % (Auto) 59.4 (50-75) % Lymph % (Auto) 21.3 L (25-40) % [place] % (Auto) 13.8 (3-14) % Eos % (Auto) 5.0 H (2-4) % Baso % (Auto) 0.5 (0-2) % Neut # (Auto) 46199 H (4054-2760) /uL Lymph # (Auto) 4100 (9526-8720) /uL [place] # (Auto) 2600 H (0-900) /uL Eos # (Auto) 1000 H (0-450) /uL Baso # (Auto) 100 (0-100) /uL PT 11.8 (9.4-12.5) SECONDS INR 1.0 (0.9-1.3) APTT 31 (25.1-36.5) SECONDS Sodium 134 L (137-145) mmol/L Potassium 3.6 (3.4-5.1) mmol/L Chloride 93 L (98-107) mmol/L Carbon Dioxide 36 H (22-32) mmol/L BUN 35 H (9-20) mg/dL Creatinine 1.71 H (0.66-1.25) mg/dL Estimated GFR 44 L (>60) mL/min BUN/Creatinine Ratio 20.5 (6-22) Glucose 72 L (80-110) mg/dL Calcium 14.0 H* 13.0 H* (8.4-10.2) mg/dL Phosphorus 3.5 (2.3-3.7) mg/dL Magnesium 1.8 (1.6-2.3) mg/dL Total Bilirubin 1.2 (0.2-1.3) mg/dL AST 32 (17-59) IU/L ALT 16 (<50) IU/L Alkaline Phosphatase 65 (38-126) U/L Total Creatine Kinase 24 L (55-170) U/L Troponin I < 0.012 (0.01-0.034) ng/mL NT-Pro-B Natriuret Pep 734 H (<125) pg/mL Total Protein 6.2 L (6.3-8.2) g/dL Albumin 3.6 (3.5-5.0) g/dL Globulin 2.6 (1.7-4.1) g/dL Albumin/Globulin Ratio 1.4 (1.0-2.8) Lipase 79 (23-300) U/L TSH 4.03 (0.47-4.68) uIU/mL PTH Intact 8 L (15-65) pg/mL Imaging Data CT scan - abdomen/pelvis: Radiologist's Impression: PROCEDURE: CT CHEST ABD PEL W CON INDICATIONS: large left buttock mass TECHNIQUE: After the administration of intravenous contrast, 5 mm thick sections acquired from the lung apices to the symphysis. 5 mm coronal and sagittal reformats were performed, with additional 7 mm MIP reformats through the lungs. For radiation dose reduction, the following was used: automated exposure control, adjustment of mA and/or kV according to patient size. COMPARISON: [facility], CT, CT CHEST WO CON, 03/07/2024, 12:40. FINDINGS: Image quality: Diagnostic CHEST: Lower Neck: No enlarged lymph nodes. Thyroid: No thyroid nodules which require sonographic follow up, per consensus guidelines. Axillae: No enlarged lymph nodes. Chest Wall: Unremarkable. Lungs and Pleura: Small left pleural effusion. Associated compressive atelectasis. No focal consolidation. No septal thickening or nodularity. Heart: Heart size is normal. No pericardial effusion. Coronary atherosclerotic vascular calcifications are noted. Thoracic Vessels: The aorta and pulmonary arteries demonstrate normal size. Mediastinum and Maria T: No enlarged lymph nodes. Esophagus: No wall thickening. No hiatal hernia. ABDOMEN: Liver: No solid mass. Gallbladder: No radiopaque gallstones or wall thickening. Biliary ducts: No biliary dilation. Pancreas: No ductal dilation. Spleen: Size is within normal limits. Adrenal Glands: No adrenal nodules. Kidneys and Ureters: No hydronephrosis. No solid mass. No complex renal cystic lesion which requires follow up. Stomach and Bowel: Normal colonic caliber, without significant wall thickening. No evidence for small bowel obstruction or associated inflammatory changes. Normal appendix Peritoneum: No abnormal intraperitoneal fluid. No free air. Ventral Wall: No significant ventral hernia. Abdominal Nodes: No retroperitoneal or mesenteric adenopathy by size criteria. Vessels: Scattered atherosclerotic calcifications of the abdominal aorta and iliac vessels without aneurysmal dilatation. The inferior vena cava appears patent. PELVIS: Pelvic Organs: Unremarkable. Bladder: No bladder wall thickening, accounting for underdistention. Pelvic Nodes: There are enlarged left pelvic sidewall and left retroperitoneal lymph nodes extending along the abnormal appearing left psoas muscle and iliopsoas muscle. Miscellaneous: No inguinal hernias are seen. There is diffuse soft tissue edema of the left proximal hip, left buttocks and lower abdomen with associated skin thickening. There is anasarca of the left lower abdomen/pelvis. No organized fluid collection seen. Bones: There is abnormal enlargement and ill-defined margins of the left psoas muscle extending into the iliopsoas muscle. There is abnormal enlargement of the musculature of the left hip and buttocks with associated osseous destruction of the adjacent left iliac bone and left sacrum. No evidence to suggest pathologic fracture. Multiple abnormal left pelvic sidewall and left inguinal lymph nodes are seen. Suggestion of mild central necrosis within the lower pelvis. Adenopathy extends along the left side of the retroperitoneum along the left psoas and aorta. Status post ORIF of the left proximal femur. IMPRESSION: Abnormally enlarged and ill-defined appearance of the left psoas muscle, iliopsoas, and musculature of the left pelvis/hip and buttocks suspicious for malignancy such as sarcoma. There is associated osseous destruction of the left iliac bone and left sacrum. No pathologic fracture seen. There also numerous pathologically enlarged lymph nodes along the left inguinal chain, left pelvic sidewall, and left retroperitoneum compatible with metastatic adenopathy. Small left pleural effusion with associated compressive atelectasis. No focal pulmonary nodules identified. Diffuse anasarca of the lower abdomen and pelvis more pronounced on the left with associated skin thickening. No organized fluid collection seen. Other chronic/nonacute findings as above. Dictated by: Brigido Rodriguez M.D. 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 Pertinent findings: Calcium 14 previously 15.9 Phosphorus 3.5 Total protein 6.2, albumin 3.6 WBC 19 previously eating 0.4 hemoglobin 11.3 hematocrit 35.7 CMP: 134 potassium 3.6 chloride 93 carbon dioxide 36 BUN 35 creatinine 1.71 Independently reviewed EKG as above Imaging studies independently reviewed: CT chest abdomen pelvis shows ill-defined left psoas muscle iliopsoas musculature left hip pelvis buttock suspicious for malignancy such as sarcoma associated osseous destruction of left iliac bone and left sacrum numerous lymph nodes left small pleural effusion Consultations: Dr. ferguson recommends transfer for denosumab Dr. Arevalo, bob/onc at [facility], recommends a 2nd dose of Zometa IV fluids treating conservatively would unlikely get a chemotherapy here Dr. Tran, heme oncology at [facility] updated patient's symptoms test results confirms that patient got a dose of Zometa on July 25. Does not recommend a repeat dose does recommend transfer Dr. 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 I did determine that patient needs to be transferred to higher level of care. He has leukocytosis worsening BLAIR persistent hypercalcemia. He already received a bisphosphonate this week. He does have lowering of calcium. Waiting for official pathology results to come back from [facility]. <Darius Escamilla, DO - Last Filed: 07/28/24 00:34> Lab Data Attestation: I reviewed the patient's lab results. Labs: Lab Results 07/27/24 07/27/24 Range/Units 14:40 19:30 WBC 19.0 H (4.5-11.0) X10^3/uL RBC 4.13 L (4.5-5.9) X10^6/uL Hgb 11.3 L (13.5-17.5) g/dL Hct 35.7 L (41-53) % MCV 86.3 D (80-100) fL MCH 27.4 (26-34) PG MCHC 31.7 (30-36) % RDW 16.1 H (11.6-14.8) % Plt Count 733 H (150-400) X10^3/uL Neut % (Auto) 59.4 (50-75) % Lymph % (Auto) 21.3 L (25-40) % [place] % (Auto) 13.8 (3-14) % Eos % (Auto) 5.0 H (2-4) % Baso % (Auto) 0.5 (0-2) % Neut # (Auto) 38833 H (0583-0677) /uL Lymph # (Auto) 4100 (2168-2800) /uL [place] # (Auto) 2600 H (0-900) /uL Eos # (Auto) 1000 H (0-450) /uL Baso # (Auto) 100 (0-100) /uL PT 11.8 (9.4-12.5) SECONDS INR 1.0 (0.9-1.3) APTT 31 (25.1-36.5) SECONDS Sodium 134 L (137-145) mmol/L Potassium 3.6 (3.4-5.1) mmol/L Chloride 93 L (98-107) mmol/L Carbon Dioxide 36 H (22-32) mmol/L BUN 35 H (9-20) mg/dL Creatinine 1.71 H (0.66-1.25) mg/dL Estimated GFR 44 L (>60) mL/min BUN/Creatinine Ratio 20.5 (6-22) Glucose 72 L (80-110) mg/dL Calcium 14.0 H* 13.0 H* (8.4-10.2) mg/dL Phosphorus 3.5 (2.3-3.7) mg/dL Magnesium 1.8 (1.6-2.3) mg/dL Total Bilirubin 1.2 (0.2-1.3) mg/dL AST 32 (17-59) IU/L ALT 16 (<50) IU/L Alkaline Phosphatase 65 (38-126) U/L Total Creatine Kinase 24 L (55-170) U/L Troponin I < 0.012 (0.01-0.034) ng/mL NT-Pro-B Natriuret Pep 734 H (<125) pg/mL Total Protein 6.2 L (6.3-8.2) g/dL Albumin 3.6 (3.5-5.0) g/dL Globulin 2.6 (1.7-4.1) g/dL Albumin/Globulin Ratio 1.4 (1.0-2.8) Lipase 79 (23-300) U/L TSH 4.03 (0.47-4.68) uIU/mL PTH Intact 8 L (15-65) pg/mL MDM Narrative Medical decision making narrative: MDM CC: High calcium Complicating co-morbidities: 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 Pertinent findings: Calcium 14 previously 15.9 Phosphorus 3.5 Total protein 6.2, albumin 3.6 WBC 19 previously eating 0.4 hemoglobin 11.3 hematocrit 35.7 CMP: 134 potassium 3.6 chloride 93 carbon dioxide 36 BUN 35 creatinine 1.71 Independently reviewed EKG as above Imaging studies independently reviewed: CT chest abdomen pelvis shows ill-defined left psoas muscle iliopsoas musculature left hip pelvis buttock suspicious for malignancy such as sarcoma associated osseous destruction of left iliac bone and left sacrum numerous lymph nodes left small pleural effusion Consultations: Dr. ferguson recommends transfer for denosumab Dr. Arevalo, bob/onc at [facility], recommends a 2nd dose of Zometa IV fluids treating conservatively would unlikely get a chemotherapy here Dr. Tran, bob oncology at [facility] updated patient's symptoms test results confirms that patient got a dose of Zometa on July 25. Does not recommend a repeat dose does recommend transfer Dr. 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 I did determine that patient needs to be transferred to higher level of care. He has leukocytosis worsening BLAIR persistent hypercalcemia. He already received a bisphosphonate this week. He does have lowering of calcium. Waiting for official pathology results to come back from [facility]. Dr escamilla: Received turned over. Review patient's history and physical exam. Patient has been receiving fluids. I discussed case Dr. Matthews at [facility] who accepts the patient for transfer. Patient was stable for transport. Discussed the need for transfer with the patient. He expressed understanding and agreement as well. Discharge Plan Departure Patient Disposition: [facility] Clinical Impression: Hypercalcemia Prescriptions: No Action gabapentin 300 mg capsule 600 mg PO TID MDD 1800mg Qty: 180 1RF oxycodone 5 mg tablet 5 mg PO TID PRN (Reason: pain) Qty: 60 0RF cholecalciferol (vitamin D3) [Vitamin D3] 50 mcg (2,000 unit) Capsule 50 mcg PO DAILY lisinopril 10 mg tablet See Rx Instructions .ROUTE .COMPLEX Qty: 90 4RF Hold Instructions: low BP Dose Instruction: TAKE ONE TABLET BY MOUTH EVERY DAY Rx Instructions: TAKE ONE TABLET BY MOUTH EVERY DAY atorvastatin 20 mg tablet 20 mg PO BEDTIME Qty: 90 3RF Rx Instructions: stop simvastatin mupirocin 2 % ointment 1 applic topical BID PRN prednisone 20 mg tablet 40 mg PO DAILY Qty: 15 0RF Rx Instructions: Take two tablets daily for 5 days and then one tablet daily for 5 days docusate sodium 250 mg capsule 250 mg PO BID Qty: 60 0RF metformin 500 mg tablet 500 mg PO DAILY Pulmicort Flexhaler 90 mcg/actuation aerosol powdr breath activated 1 inh inhalation BID Qty: 1 4RF albuterol sulfate 90 mcg/actuation HFA aerosol inhaler 2 puff PO Q4-6H Qty: 8.5 2RF Referrals: Rodríguez Dash MD [Primary Care Provider] -
[2024-07-27 15:47] LABS: Phosphorous 3.5 mg/dL (2.3-3.7)
[2024-07-27 16:18] LABS: Thyroid Stimulating Hormone 4.03 uIU/mL (0.47-4.68)
[2024-07-27] MEDS: FUROSEMIDE 40 MG/4 ML VIAL 20 MG IV (16:31)
[2024-07-27] MEDS: CALCITONIN,SALMON 400 UNITS/2 ML MDV 300 UNITS SUBCUT (16:32)
--- NOTE | 2024-07-27 16:52 | PC.NURSE ---
Transfer request started with [facility] @[id number] spoke with Alayna. Face sheet, EKG, and ED lab report faxed over to [facility]. [facility] is currently waitlisted for a bed.
--- NOTE | 2024-07-27 16:54 | DI.CT.S_ITS ---
PROCEDURE: CT CHEST ABD PEL W CON INDICATIONS: large left buttock mass TECHNIQUE: After the administration of intravenous contrast, 5 mm thick sections acquired from the lung apices to the symphysis. 5 mm coronal and sagittal reformats were performed, with additional 7 mm MIP reformats through the lungs. For radiation dose reduction, the following was used: automated exposure control, adjustment of mA and/or kV according to patient size. COMPARISON: [facility], CT, CT CHEST WO CON, 03/07/2024, 12:40. FINDINGS: Image quality: Diagnostic CHEST: Lower Neck: No enlarged lymph nodes. Thyroid: No thyroid nodules which require sonographic follow up, per consensus guidelines. Axillae: No enlarged lymph nodes. Chest Wall: Unremarkable. Lungs and Pleura: Small left pleural effusion. Associated compressive atelectasis. No focal consolidation. No septal thickening or nodularity. Heart: Heart size is normal. No pericardial effusion. Coronary atherosclerotic vascular calcifications are noted. Thoracic Vessels: The aorta and pulmonary arteries demonstrate normal size. Mediastinum and Maria T: No enlarged lymph nodes. Esophagus: No wall thickening. No hiatal hernia. ABDOMEN: Liver: No solid mass. Gallbladder: No radiopaque gallstones or wall thickening. Biliary ducts: No biliary dilation. Pancreas: No ductal dilation. Spleen: Size is within normal limits. Adrenal Glands: No adrenal nodules. Kidneys and Ureters: No hydronephrosis. No solid mass. No complex renal cystic lesion which requires follow up. Stomach and Bowel: Normal colonic caliber, without significant wall thickening. No evidence for small bowel obstruction or associated inflammatory changes. Normal appendix Peritoneum: No abnormal intraperitoneal fluid. No free air. Ventral Wall: No significant ventral hernia. Abdominal Nodes: No retroperitoneal or mesenteric adenopathy by size criteria. Vessels: Scattered atherosclerotic calcifications of the abdominal aorta and iliac vessels without aneurysmal dilatation. The inferior vena cava appears patent. PELVIS: Pelvic Organs: Unremarkable. Bladder: No bladder wall thickening, accounting for underdistention. Pelvic Nodes: There are enlarged left pelvic sidewall and left retroperitoneal lymph nodes extending along the abnormal appearing left psoas muscle and iliopsoas muscle. Miscellaneous: No inguinal hernias are seen. There is diffuse soft tissue edema of the left proximal hip, left buttocks and lower abdomen with associated skin thickening. There is anasarca of the left lower abdomen/pelvis. No organized fluid collection seen. Bones: There is abnormal enlargement and ill-defined margins of the left psoas muscle extending into the iliopsoas muscle. There is abnormal enlargement of the musculature of the left hip and buttocks with associated osseous destruction of the adjacent left iliac bone and left sacrum. No evidence to suggest pathologic fracture. Multiple abnormal left pelvic sidewall and left inguinal lymph nodes are seen. Suggestion of mild central necrosis within the lower pelvis. Adenopathy extends along the left side of the retroperitoneum along the left psoas and aorta. Status post ORIF of the left proximal femur. IMPRESSION: Abnormally enlarged and ill-defined appearance of the left psoas muscle, iliopsoas, and musculature of the left pelvis/hip and buttocks suspicious for malignancy such as sarcoma. There is associated osseous destruction of the left iliac bone and left sacrum. No pathologic fracture seen. There also numerous pathologically enlarged lymph nodes along the left inguinal chain, left pelvic sidewall, and left retroperitoneum compatible with metastatic adenopathy. Small left pleural effusion with associated compressive atelectasis. No focal pulmonary nodules identified. Diffuse anasarca of the lower abdomen and pelvis more pronounced on the left with associated skin thickening. No organized fluid collection seen. Other chronic/nonacute findings as above. Dictated by: Brigido Rodriguez M.D. on 07/27/2024 at 18:04 Approved by: Brigido Rodriguez M.D. on 07/27/2024 at 18:15
[2024-07-27] MEDS: ONDANSETRON 4 MG/2 ML INJ IV (17:03)
[2024-07-27] MEDS: SODIUM CHLORIDE 0.9% 1,000 ML 100 ML IV (17:04)
--- NOTE | 2024-07-27 19:22 | PC.NURSE ---
Pt lying back in [place]. Appears in NAD. Eyes closed, assume asleep.
--- NOTE | 2024-07-27 19:52 | PC.NURSE ---
Pt up to bedside with one assist. Using urinal. Voiding. O2 decreased to RA Sats 91-92%. Placed on 1 L per NC. Sats improved to 94-95%
[2024-07-28] VITALS: BP 108/65; PULSE 92; O2SAT 97
[2024-07-28 00:30] VITALS: BP 122/71; PULSE 87; RESP 10; O2SAT 96
[2024-07-28 01:00] VITALS: BP 108/63; PULSE 90; RESP 12; O2SAT 94
[2024-07-28 01:30] VITALS: BP 116/63; PULSE 92; RESP 13; O2SAT 96
[2024-07-28] MEDS: ONDANSETRON 4 MG/2 ML INJ IV (02:04)
[2024-07-29 07:09] LABS: Parathyroid Hormone Int 8 pg/mL (15-65)
== END 2024-07-28 02:25 | disposition short-term general hospital (02) ==
PROVIDERS: Emergency Medicine; Emergency Provider Emergency Medicine; PCP Family Medicine
DX: E83.52 Hypercalcemia (principal); R22.2 Localized swelling, mass and lump, trunk; R79.89 Other specified abnormal findings of blood chemistry; J90 Pleural effusion, not elsewhere classified
CPT/HCPCS: 71260; 74177; 80053; 82310; 82550; 83690; 83735; 83880; 83970; 84100; 84443; 84484; 85025; 85610; 85730; 93005; 93010; 96361; 96372; 96374; 96375; 96376; 99284; J0630; J1940; J2405; Q9967

== ENCOUNTER → 2024-08-03 11:32 | Outpatient (CLI) | payer OTHER, SELFPAY ==
[2024-08-03 19:06] LABS: HEMOLYSIS < 15 (0-50); Iron 60 ug/dL (49-181)
[2024-08-03 19:08] LABS: BUN Creatinine Ratio 16.2 (6-22); Blood Urea Nitrogen 16 mg/dL (9-20); Calcium 9.9 mg/dL (8.4-10.2); Carbon Dioxide 23 mmol/L (22-32); Chloride 99 mmol/L (98-107); Estimated Glomerular Filt Rate > 60 mL/min (>60); Glucose 112 mg/dL (80-110); HEMOLYSIS < 15 (0-50); Potassium 3.7 mmol/L (3.4-5.1); Sodium 130 mmol/L (137-145)
[2024-08-03 19:20] LABS: Hematocrit 32.2 % (41-53); Hemoglobin 11.6 g/dL (13.5-17.5); Mean Corpuscular HGB Conc 35.9 % (30-36); Mean Corpuscular Hemoglobin 35.6 PG (26-34); Percent Iron Saturation 26 % (20-50); Platelet Count 644 X10^3/uL (150-400); Red Blood Cell Count 3.25 X10^6/uL (4.5-5.9); Red Cell Distribution Width 16.7 % (11.6-14.8); Total Iron Binding Capacity 230 ug/dL (261-462); White Blood Cell Count 15.6 X10^3/uL (4.5-11.0)
[2024-08-03 19:21] LABS: Transferrin 170 mg/dL (206-381)
[2024-08-03 19:38] LABS: Add Manual Diff / Slide Review YES
[2024-08-03 19:42] LABS: Cholesterol 131 mg/dL (140-199); HDL Cholesterol 23 mg/dL (40-60); LDL Cholesterol Calculated 61 mg/dL (<100); Triglycerides 233 mg/dL (35-150)
[2024-08-03 19:49] LABS: Hemoglobin A1C% w Est Avg Glu 4.7 % (4.0-6.0)
[2024-08-03 19:56] LABS: Vitamin B12 > 1000 pg/mL (239-931)
[2024-08-03 20:08] LABS: Neutrophils Absolute Manual 8736 /uL (3000-5900); Total Cells Counted 100; Toxic Vacuolation Present
[2024-08-03 20:09] LABS: Smudge Cells 2+
[2024-08-03 20:10] LABS: Ovalocytes 1+
== END ==
PROVIDERS: PCP Family Medicine; Visit Provider Physician Assistant
DX: E78.5 Hyperlipidemia, unspecified (principal); D75.89 Other specified diseases of blood and blood-forming organs; D64.9 Anemia, unspecified; Z79.899 Other long term (current) drug therapy; R17 Unspecified jaundice; E11.65 Type 2 diabetes mellitus with hyperglycemia; E83.52 Hypercalcemia; C79.9 Secondary malignant neoplasm of unspecified site; I95.9 Hypotension, unspecified
CPT/HCPCS: 80048; 80061; 82607; 83036; 83540; 83550; 85007; 85025

== ENCOUNTER → 2024-08-09 12:57 | Outpatient (CLI) | payer OTHER, SELFPAY ==
[2024-08-09 20:42] LABS: BUN Creatinine Ratio 21.3 (6-22); Blood Urea Nitrogen 23 mg/dL (9-20); Carbon Dioxide 28 mmol/L (22-32); Chloride 97 mmol/L (98-107); Estimated Glomerular Filt Rate > 60 mL/min (>60); Glucose 104 mg/dL (80-110); HEMOLYSIS < 15 (0-50); Potassium 4.3 mmol/L (3.4-5.1); Sodium 126 mmol/L (137-145)
[2024-08-09 20:46] LABS: Hemoglobin 11.2 g/dL (13.5-17.5); Mean Corpuscular Hemoglobin 31.9 PG (26-34); Mean Corpuscular Volume 93.7 fL (80-100); Platelet Count 831 X10^3/uL (150-400); Red Blood Cell Count 3.52 X10^6/uL (4.5-5.9); Red Cell Distribution Width 16.3 % (11.6-14.8); White Blood Cell Count 18.7 X10^3/uL (4.5-11.0)
[2024-08-09 20:50] LABS: Add Manual Diff / Slide Review YES
[2024-08-09 21:19] LABS: Anisocytosis 1+; Neutrophils Absolute Manual 11407 /uL (3000-5900); Platelet Estimate Incr; Total Cells Counted 100
== END ==
PROVIDERS: PCP Family Medicine; Visit Provider Family Medicine
DX: E83.52 Hypercalcemia (principal); D75.839 Thrombocytosis, unspecified; D64.9 Anemia, unspecified; D72.820 Lymphocytosis (symptomatic); C79.9 Secondary malignant neoplasm of unspecified site; R29.898 Other symptoms and signs involving the musculoskeletal system
CPT/HCPCS: 80048; 85007; 85025

== ENCOUNTER → 2024-08-15 13:59 | Outpatient (CLI) | payer OTHER, SELFPAY ==
[2024-08-15 19:24] LABS: Add Manual Diff / Slide Review NO; Basophils Absolute Auto 200 /uL (0-100); Basophils Percent Auto 1.1 % (0-2); Eosinophils Absolute Auto 800 /uL (0-450); Eosinophils Percent Auto 4.6 % (2-4); Hemoglobin 12.1 g/dL (13.5-17.5); Lymphocytes Absolute Auto 3200 /uL (1100-4500); Lymphocytes Percent Auto 18.1 % (25-40); Mean Corpuscular HGB Conc 32.7 % (30-36); Mean Corpuscular Hemoglobin 30.2 PG (26-34); Mean Corpuscular Volume 92.4 fL (80-100); Monocytes Absolute Auto 2200 /uL (0-900); Monocytes Percent Auto 12.2 % (3-14); Neutrophils Absolute Auto 11400 /uL (1500-7000); Platelet Count 735 X10^3/uL (150-400); Red Blood Cell Count 4.01 X10^6/uL (4.5-5.9); Red Cell Distribution Width 16.6 % (11.6-14.8); White Blood Cell Count 17.8 X10^3/uL (4.5-11.0)
[2024-08-15 19:28] LABS: BUN Creatinine Ratio 24.2 (6-22); Blood Urea Nitrogen 24 mg/dL (9-20); Carbon Dioxide 31 mmol/L (22-32); Chloride 94 mmol/L (98-107); Estimated Glomerular Filt Rate > 60 mL/min (>60); Glucose 85 mg/dL (80-110); HEMOLYSIS < 15 (0-50); Potassium 4.4 mmol/L (3.4-5.1); Sodium 129 mmol/L (137-145)
[2024-08-18 14:08] LABS: Osmolality, Serum 281 mOsmol/kg (280-301)
== END ==
PROVIDERS: PCP Family Medicine; Referring Provider Family Medicine; Visit Provider Family Medicine
DX: D64.9 Anemia, unspecified (principal); E87.1 Hypo-osmolality and hyponatremia
CPT/HCPCS: 80048; 83930; 85025

== ENCOUNTER → 2024-08-16 08:00 | Outpatient (CLI) | payer OTHER, SELFPAY ==
[2024-08-16 20:39] LABS: Sodium Urine Random 25 mmol/L (30-90)
[2024-08-18 14:08] LABS: Osmolality Urine 451 mOsmol/kg (.)
== END ==
PROVIDERS: PCP Family Medicine; Visit Provider Family Medicine
DX: E87.1 Hypo-osmolality and hyponatremia (principal); E83.52 Hypercalcemia; D64.9 Anemia, unspecified
CPT/HCPCS: 83935; 84300